=== PATIENT | female | born 1995 | race African-American/Black ===

== ENCOUNTER 2018-07-12 00:24 | Inpatient (IN) | payer MEDICAID ==
[2018-07-12] MEDS ORDERED: Tranexamic Acid 1,000 MG in Sodium Chloride 0.9% 100 ML IV PRN (00:57)
[2018-07-12] MEDS ORDERED: Carboprost Tromethamine 250 MCG/1 ML Amp IM PRN (00:57)
[2018-07-12] MEDS ORDERED: Butorphanol 1 MG/ML SDV IVPUSH PRN (00:57)
[2018-07-12] MEDS ORDERED: Methylergonovine 0.2 MG/1 ML Amp IM PRN (00:57)
[2018-07-12] MEDS ORDERED: Sodium Chloride 0.9% 2.5 ML Syringe FLUSH PRN (00:57)
[2018-07-12] MEDS ORDERED: Misoprostol 200 MCG Tab PO PRN (00:57)
[2018-07-12] MEDS ORDERED: Sodium Chloride 0.9% 10 ML Syringe FLUSH PRN (00:57)
[2018-07-12] MEDS ORDERED: Water For Irrigation,Sterile 1,000 ML Container IRR PRN (00:57)
[2018-07-12] MEDS ORDERED: Nalbuphine 10 MG/1 ML Vial IVPUSH PRN (00:57)
[2018-07-12] MEDS ORDERED: Lidocaine 1% 50 ML MDV INJECT PRN (00:57)
[2018-07-12] MEDS ORDERED: Ampicillin 2 GM in Sodium Chloride 0.9% 100 ML IV ONE ×2 (00:57→01:15)
[2018-07-12] MEDS ORDERED: Lactated Ringers 1,000 ML IV SCH (01:00)
[2018-07-12] MEDS ORDERED: Oxytocin/0.9 % Sodium Chloride 30 UNIT/500 ML BAG IV SCH (01:00)
[2018-07-12] MEDS ORDERED: Ampicillin 2 GM AdvVial IV ONE (01:03)
[2018-07-12] MEDS ORDERED: Sodium Chloride 0.9% 100 ML ONE (01:09)
[2018-07-12] MEDS ORDERED: Benzocaine/Menthol 20%-0.5% Spray 78 GM Cannister TOP PRN (03:35)
[2018-07-12] MEDS ORDERED: Docusate Sodium 100 MG Cap PO PRN (03:35)
[2018-07-12] MEDS ORDERED: Lanolin 100% Cream 7 GM Tube TOP PRN (03:35)
[2018-07-12] MEDS ORDERED: Acetaminophen 500 MG Tab PO PRN ×2 (03:35)
[2018-07-12] MEDS ORDERED: oxyCODONE 5 MG Tab PO PRN (03:35)
[2018-07-12] MEDS ORDERED: Ibuprofen 400 MG Tab PO PRN (03:35)
[2018-07-12] MEDS ORDERED: Bisacodyl 10 MG Supp RECTAL PRN (03:35)
[2018-07-12] MEDS ORDERED: Witch Hazel Medicated Pads 40/Jar TOP PRN (03:35)
--- NOTE | 2018-07-12 03:35 | PCM.LDHP ---
L&D History of Present Illness - General Date of Service: 07/12/18 Admit Problem/Dx: Patient Status Order with Admit Dx/Problem 07/12/18 00:57 Patient Status [ADT] Routine Admission Diagnosis/Problem Admission Diagnosis/Problem - planned Source of Information: Patient History Limitations: Reports: No Limitations - History of Present Illness Pain Score: 10 Improves with: Reports: None Worsens with: Reports: None Associated Symptoms: Reports: N - Related Data Allergies/Adverse Reactions: Allergies Allergy/AdvReac Type Severity Reaction Status Date / Time No Known Allergies Allergy Verified 01/16/16 14:07 Past Medical History - Past Health History Medical/Surgical History: Denies Medical/Surgical History HEENT History: Reports: None Cardiovascular History: Reports: None Respiratory History: Reports: None Gastrointestinal History: Reports: None Genitourinary History: Reports: None 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: Musculoskeletal History: Reports: None Other Musculoskeletal History: back pain during Neurological History: Reports: None Psychiatric History: Reports: Depression Endocrine/Metabolic History: Reports: None Hematologic History: Reports: None Immunologic History: Reports: None Oncologic (Cancer) History: Reports: None Dermatologic History: Reports: None - Infectious Disease History Infectious Disease History: Reports: Chicken Pox - Past Surgical History Head Surgeries/Procedures: Reports: None Respiratory Surgical History: Reports: None GI Surgical History: Reports: None Female Surgical History: Reports: None Neurological Surgical History: Reports: None Musculoskeletal Surgical History: Reports: None Oncologic Surgical History: Reports: None Dermatological Surgical History: Reports: None Social & Family History - Family History Respiratory: Reports: None Endocrine/Metabolic: Reports: Diabetes, type II Dermatologic: Reports: None Oncologic: Reports: None - Tobacco Use Smoking Status *Q: Never Smoker Second Hand Smoke Exposure: Yes - Recreational Drug Use Recreational Drug Use: No H&P Review of Systems - Review of Systems: Review Of Systems: See Below General: Reports: No Symptoms HEENT: Reports: No Symptoms Pulmonary: Reports: No Symptoms Cardiovascular: Reports: No Symptoms Gastrointestinal: Reports: No Symptoms Genitourinary: Reports: No Symptoms Musculoskeletal: Reports: No Symptoms Skin: Reports: No Symptoms Psychiatric: Reports: No Symptoms Neurological: Reports: No Symptoms Hematologic/Lymphatic: Reports: No Symptoms Immunologic: Reports: No Symptoms L&D Exam - Exam Exam: See Below - Vital Signs Weight: 89.358 kg - OB Specific Fundal Height In cm: 37 Contraction Intensity: Moderate Movement: Active Heart Tones: Present Presentation: Vertex - Bateman Score Bateman Score Cervix Position: Anterior Bateman Score Consistency: Soft Bateman Score Effacement: >80% Bateman Score Dilation: > 5 cm Bateman Score 's Station: -1 ,0 Bateman Score Total: 12 - Exam General: Alert, Oriented HEENT: PERRLA, Conjunctiva Clear, EACs Clear, EOMI, Hearing Intact, Mucosa Moist & [place], Nares Patent, Normal Nasal Septum, Posterior Pharynx Clear, TMs Clear Neck: Supple, Trachea Midline Lungs: Clear to Auscultation, Normal Respiratory Effort Cardiovascular: Regular Rate, Regular Rhythm GI/Abdominal Exam: Normal Bowel Sounds, Soft, Non-Tender, No Organomegaly, No Distention, No Abnormal Bruit, No Mass, Pelvis Stable Rectal Exam: Normal Exam, Normal Rectal Tone Genitourinary: Normal external exam, Normal bimanual exam, Normal speculum exam Back Exam: Normal Inspection, Full Range of Motion Extremities: Normal Inspection, Normal Range of Motion, Non-Tender, No Pedal Edema, Normal Capillary Refill Skin: Warm, Dry, Intact Neurological: Cranial Nerves Intact, Reflexes Equal Bilateral Psychiatric: Alert, Normal Affect, Normal Mood - Patient Data Lab Results Last 24 hrs: Laboratory Results - last 24 hr 07/12/18 07/12/18 Range/Units 01:25 01:25 WBC 9.44 (4.0-11.0) K/uL RBC 3.57 L (4.30-5.90) M/uL Hgb 11.6 L (12.0-16.0) g/dL Hct 33.5 L (36.0-46.0) % MCV 93.8 (80.0-98.0) fL MCH 32.5 H (27.0-32.0) pg MCHC 34.6 (31.0-37.0) g/dL RDW Std Deviation 39.4 (28.0-62.0) fl RDW Coeff of [place] 12 (11.0-15.0) % Plt Count 167 (150-400) K/uL MPV 9.40 (7.40-12.00) fL Blood Type B NEGATIVE Antibody Screen NEGATIVE Result Diagrams: 07/12/18 01:25 Problem List Initiated/Reviewed/Updated: Yes Orders Last 24hrs: Active Orders 24 hr Category Date Time Status Patient Status [ADT] Routine ADT 07/12/18 00:57 Active Heart Tones [RC] CONTINUOUS Care 07/12/18 00:57 Active Non Stress Test [RC] PER UNIT ROUTINE Care 07/12/18 00:57 Active May Shower [RC] ASDIRECTED Care 07/12/18 00:57 Active Notify Provider [RC] PRN Care 07/12/18 00:57 Active Up ad Radha [RC] ASDIRECTED Care 07/12/18 00:57 Active Vaginal Exam [RC] PRN Care 07/12/18 00:57 Active Vital Signs [RC] PER UNIT ROUTINE Care 07/12/18 00:57 Active Ampicillin 1 gm Med 07/12/18 05:00 Active Sodium Chloride 0.9% [Normal Saline] 50 ml IV Q4H Butorphanol [Stadol] Med 07/12/18 00:57 Active 1 mg IVPUSH Q1H PRN Carboprost Tromethamine [Hemabate DS] Med 07/12/18 00:57 Active 250 mcg IM ASDIRECTED PRN Lactated Ringers [Ringers, Lactated] 1,000 ml Med 07/12/18 01:00 Active IV ASDIRECTED Lidocaine 1% [Xylocaine 1%] Med 07/12/18 00:57 Active 50 ml INJECT ONETIME PRN Methylergonovine [Methergine] Med 07/12/18 00:57 Active 0.2 mg IM ASDIRECTED PRN Nalbuphine [Nubain] Med 07/12/18 00:57 Active 10 mg IVPUSH Q1H PRN Oxytocin/0.9 % Sodium Chloride [Oxytocin 30 Unit/500 ML Med 07/12/18 01:00 Active -NS] 30 unit in 500 ml IV TITRATE Sodium Chloride 0.9% [Saline Flush] Med 07/12/18 00:57 Active 10 ml FLUSH ASDIRECTED PRN Sodium Chloride 0.9% [Saline Flush] Med 07/12/18 00:57 Active 2.5 ml FLUSH ASDIRECTED PRN Tranexamic Acid [Cyklokapron] 1,000 mg Med 07/12/18 00:57 Active Sodium Chloride 0.9% [Normal Saline] 100 ml IV ONETIME Water For Irrigation,Sterile [Sterile Water for Med 07/12/18 00:57 Active Irrigation] 1,000 ml IRR ASDIRECTED PRN miSOPROStol [Cytotec] Med 07/12/18 00:57 Active 200 mcg PO ONETIME PRN Scalp Electrode [WOMSER] Per Unit Routine Oth 07/12/18 00:57 Ordered Peripheral IV Insertion Adult [OM.PC] Routine Oth 07/12/18 00:57 Ordered Resuscitation Status Routine Resus Stat 07/12/18 00:57 Ordered Medication Orders Butorphanol Tartrate (Stadol) 1 mg IVPUSH Q1H PRN PRN Reason: Pain Last Admin: 07/12/18 01:15 Dose: 1 mg Carboprost Tromethamine (Hemabate Ds) 250 mcg IM ASDIRECTED PRN PRN Reason: Post Hemorrhage Lactated Ringer's (Ringers, Lactated) 1,000 mls @ 150 mls/hr IV ASDIRECTED JAYLON Last Admin: 07/12/18 01:14 Dose: 150 mls/hr Oxytocin/Sodium Chloride (Oxytocin 30 Unit/500 Ml-Ns) 30 unit in 500 mls @ 999 mls/hr IV TITRATE JAYLON Tranexamic Acid 1,000 mg/ (Sodium Chloride) 110 mls @ 660 mls/hr IV ONETIME PRN PRN Reason: Bleeding Ampicillin Sodium 1 gm/ Sodium (Chloride) 50 mls @ 100 mls/hr IV Q4H [facility] Lidocaine HCl (Xylocaine 1%) 50 ml INJECT ONETIME PRN PRN Reason: Laceration repair Methylergonovine Maleate (Methergine) 0.2 mg IM ASDIRECTED PRN PRN Reason: Post Hemorrhage Misoprostol (Cytotec) 200 mcg PO ONETIME PRN PRN Reason: Post Hemorrhage Nalbuphine HCl (Nubain) 10 mg IVPUSH Q1H PRN PRN Reason: Pain (severe 7-10) Last Admin: 07/12/18 03:06 Dose: 10 mg Sodium Chloride (Saline Flush) 10 ml FLUSH ASDIRECTED PRN PRN Reason: Keep Vein Open Sodium Chloride (Saline Flush) 2.5 ml FLUSH ASDIRECTED PRN PRN Reason: Keep Vein Open Sterile Water (Sterile Water For Irrigation) 1,000 ml IRR ASDIRECTED PRN PRN Reason: delivery Assessment/Plan Comment:: Termpregnancy in active labor. GBS + will start on antibiotic.
[2018-07-12] MEDS: Ibuprofen 800 MG Tab PO PRN (04:20)
[2018-07-12] MEDS ORDERED: Ampicillin 1 GM in Sodium Chloride 0.9% 50 ML IV SCH (05:00)
--- NOTE | 2018-07-12 05:05 | OR ---
SURGEON: Yuan Stoll MD DATE OF PROCEDURE: Ms. Gonzales is a 22-year-old patient. She is para 1-0-0-1. She is 37+ weeks. She is followed in our clinic. Primarily, she is followed by our nurse cosmetic sales advisor. Her GBS status is not done yet. She presented to Labor and Delivery in active labor. At the time of admission, she was 7 cm complete vertex, -1 station, intact. She is started on antibiotic as per protocol. The patient had Nubain and IV medication for labor pain and then she progressed nicely. She had a spontaneous rupture of the membrane with a clear fluid and then she was able to accomplish normal spontaneous vaginal delivery of a female fetus. score reported to be 8 and 9 and the weight is not available at this time. The placenta delivered spontaneous complete and intact. There was no need for episiotomy. There was no labial or perineal laceration. Estimated blood loss was 250 to 300 mL. heart rate was category 1 through the entire process of labor. There was no complication. MANJULA / BON /[id number]
[2018-07-13] MEDS: Ibuprofen 800 MG Tab PO PRN (00:55)
[2018-07-13 07:57] VITALS: BP 123/75
--- NOTE | 2018-07-13 08:02 | PCM.DCSUM1 ---
Discharge Summary - Hospital Course Free Text/Narrative:: Discharge home with . Follow up in 6 weeks or sooner if needed for post . Diagnosis: Stroke: No - Discharge Data Discharge Date: 07/13/18 Discharge Disposition: Home, Self-Care 01 Condition: Good - Patient Instructions Diet: Usual Diet as Tolerated Activity: As Tolerated, No Strenuous Activities, Rest and Relax Today Driving: May Drive Today Showering/Bathing: May Shower Notify Provider of: Fever, Increased Pain, Swelling and Redness, Nausea and/or Vomiting Other/Special Instructions: Discharge home with . Follow up in 6 weeks or sooner if needed for post . - Discharge Plan *PRESCRIPTION DRUG MONITORING PROGRAM REVIEWED*: Not Applicable *COPY OF PRESCRIPTION DRUG MONITORING REPORT IN PATIENT AKBAR: Not Applicable Home Medications: Home Meds PNV #116/Iron Fumarate/FA/DHA [Expecta Combo Pack] 1 tab PO DAILY 07/12 [History] Referrals: [facility] [Outside] Tara Ha CNM [Mid-] - 08/25/18 8:30 am - General Info Date of Service: 07/13/18 Admission Dx/Problem (Free Text: Patient Status Order with Admit Dx/Problem 07/12/18 00:57 Patient Status [ADT] Routine Admission Diagnosis/Problem Admission Diagnosis/Problem - planned Functional Status: Reports: Pain Controlled, Tolerating Diet, Ambulating, Urinating - Review of Systems General: Reports: No Symptoms HEENT: Reports: No Symptoms Pulmonary: Reports: No Symptoms Cardiovascular: Reports: No Symptoms Gastrointestinal: Reports: No Symptoms Genitourinary: Reports: No Symptoms Musculoskeletal: Reports: No Symptoms Skin: Reports: No Symptoms Neurological: Reports: No Symptoms Psychiatric: Reports: No Symptoms - Patient Data Vitals - Most Recent: Last Vital Signs Temp 36.8 C 07/13/18 07:57 Pulse 73 07/13/18 07:57 Resp 15 07/13/18 07:57 BP 123/75 07/13/18 07:57 Pulse Ox 97 07/13/18 07:57 Weight - Most Recent: 89.358 kg Lab Results - Last 24 hrs: Laboratory Results - last 24 hr 07/13/18 Range/Units 05:10 Hgb 10.7 L (12.0-16.0) g/dL Hct 31.4 L (36.0-46.0) % Med Orders - Current: Current Medications Acetaminophen (Tylenol Extra Strength) 500 mg PO Q4H PRN PRN Reason: Pain Acetaminophen (Tylenol Extra Strength) 1,000 mg PO Q4H PRN PRN Reason: Pain Benzocaine/Menthol (Dermoplast Pain Relief 20%-0.5% [place]) 78 gm TOP ASDIRECTED PRN PRN Reason: Perineal Comfort Measure Last Admin: 07/12/18 04:25 Dose: 78 gram Bisacodyl (Dulcolax) 10 mg RECTAL ONETIME PRN PRN Reason: Constipation Butorphanol Tartrate (Stadol) 1 mg IVPUSH Q1H PRN PRN Reason: Pain Last Admin: 07/12/18 01:15 Dose: 1 mg Carboprost Tromethamine (Hemabate Ds) 250 mcg IM ASDIRECTED PRN PRN Reason: Post Hemorrhage Docusate Sodium (Colace) 100 mg PO BID PRN PRN Reason: Constipation Last Admin: 07/12/18 04:22 Dose: 100 mg Emollient Ointment (Lansinoh Hpa) 0 gm TOP ASDIRECTED PRN PRN Reason: Sore Nipples Lactated Ringer's (Ringers, Lactated) 1,000 mls @ 150 mls/hr IV ASDIRECTED JAYLON Last Admin: 07/12/18 01:14 Dose: 150 mls/hr Tranexamic Acid 1,000 mg/ (Sodium Chloride) 110 mls @ 660 mls/hr IV ONETIME PRN PRN Reason: Bleeding Ibuprofen (Motrin) 400 mg PO Q4H PRN PRN Reason: Pain Ibuprofen (Motrin) 800 mg PO Q6H PRN PRN Reason: Pain Last Admin: 07/13/18 00:55 Dose: 800 mg Lidocaine HCl (Xylocaine 1%) 50 ml INJECT ONETIME PRN PRN Reason: Laceration repair Methylergonovine Maleate (Methergine) 0.2 mg IM ASDIRECTED PRN PRN Reason: Post Hemorrhage Misoprostol (Cytotec) 200 mcg PO ONETIME PRN PRN Reason: Post Hemorrhage Oxycodone HCl (Oxycodone) 5 mg PO Q2H PRN PRN Reason: Pain Sodium Chloride (Saline Flush) 10 ml FLUSH ASDIRECTED PRN PRN Reason: Keep Vein Open Sodium Chloride (Saline Flush) 2.5 ml FLUSH ASDIRECTED PRN PRN Reason: Keep Vein Open Sterile Water (Sterile Water For Irrigation) 1,000 ml IRR ASDIRECTED PRN PRN Reason: delivery Witch Katie (Tucks) 1 pad TOP ASDIRECTED PRN PRN Reason: comfort care Last Admin: 07/12/18 04:23 Dose: 1 pad Discontinued Medications Ampicillin Sodium (Ampicillin) Confirm Administered Dose 2 gm IV .STK-MED ONE Stop: 07/12/18 01:04 Oxytocin/Sodium Chloride (Oxytocin 30 Unit/500 Ml-Ns) 30 unit in 500 mls @ 999 mls/hr IV TITRATE JAYLON Last Admin: 07/12/18 03:26 Dose: 999 mls/hr Ampicillin Sodium 2 gm/ Sodium (Chloride) 100 mls @ 200 mls/hr IV ONETIME ONE Stop: 07/12/18 01:44 Last Admin: 07/12/18 01:13 Dose: 200 mls/hr Sodium Chloride (Normal Saline) Confirm Administered Dose 100 mls @ as directed .ROUTE .STK-MED ONE Stop: 07/12/18 01:10 Ampicillin Sodium 1 gm/ Sodium (Chloride) 50 mls @ 100 mls/hr IV Q4H JAYLON Nalbuphine HCl (Nubain) 10 mg IVPUSH Q1H PRN PRN Reason: Pain (severe 7-10) Last Admin: 07/12/18 03:06 Dose: 10 mg - Exam General: Reports: Alert, Oriented, Cooperative, No Acute Distress Lungs: Reports: Normal Respiratory Effort GI/Abdominal Exam: Soft, Non-Tender (Female) Exam: Vaginal Bleeding Rectal (Female) Exam: Deferred Back Exam: Reports: Normal Inspection, Full Range of Motion Extremities: Normal Inspection, Normal Range of Motion, Non-Tender, No Pedal Edema, Normal Capillary Refill Skin: Reports: Warm, Dry, Intact Wound/Incisions: Reports: Healing Well Neurological: Reports: No New Focal Deficit, Normal Gait, Normal Speech, Normal Tone, Strength Equal Bilateral Psy/Mental Status: Reports: Alert, Normal Affect, Normal Mood
== END 2018-07-13 11:20 | disposition home or self-care (01) | DRG 775 ==
LOC: MW.OBCHECK 00:24 → MW.OB 00:26 → MW.OBCHECK 00:57 → OBSVTOIN 03:26 → MW.OB 07:24
PROVIDERS: ADMIT Obstetrics & Gynecology; ATTEND Obstetrics & Gynecology
PROC: 10E0XZZ Delivery of Products of Conception, External Approach (ICD-10-PCS; principal; 2018-07-12)
DX: O80 Encounter for full-term uncomplicated delivery (principal); Z3A.37 37 weeks gestation of pregnancy; Z37.0 Single live birth
CPT/HCPCS: 36415; 59025; 59409; 85014; 85018; 85027; 86850; 86900; 86901; A9270-GY; J0290; J0595; J2300; J2590; J7030; J7120